=== PATIENT | female | born 1950 | race Caucasian/White ===

== ENCOUNTER → 2017-03-31 | Outpatient (CLI) | payer MEDICARE, BC ==
[~2017-03-31] MED LIST: ALLEGRA; AUGMENTIN PO; CALCIUM 600 +1 EAC3 PO; DIOVAN HCT 80/11 TAB; LIPITOR PO; NASONEX17 GM; OYSTER CALCIUM500 MG; PREDNISONE PO; VITAMIN B-650 MG PO; ZOCOR
--- NOTE | ~2017-03-31 | US136 ---
[facility] A Service of [facility] RADIOLOGY TEXT RESULTS PATIENT: CASSIDY JUNIOR LOCATION: CNIV : 48 UNIT #: [id number] AGE: [address]: Sherita Fonseca MD SEX: F ORDER DR: [id number] [facility] [address] [place], [place] [address] [id number] O MR#: [id number] Acc #: [id number] NAME: CASSIDY JUNIOR : 1950 SEX: F STUDY DATE/TIME: 03/31/2017 14:02 UNIT: CNIV ROOM: STUDY DESCRIPTION: US U/L Ext Art Study Ltd Bil Attending Physician: Sherita Fonseca M.D. Referring Physician: Sherita Fonseca M.D. Ordering Physician: Sherita Fonseca M.D. Primary Care Physician: Sherita Fonseca M.D. MEDICAL IMAGING REPORT This report is preliminary unless electronic signature is present EXAM Bilateral lower extremity IAN, 03/31/2017 HISTORY Claudication FINDINGS The right brachial pressure is 150, left is 137. Right dorsalis pedis pressure is 161 and posterior tibial 157 for an IAN of 1.07 and first toe pressure of 120 mmHg. Left dorsalis pedis pressure is 142, posterior tibial is 159 for an IAN of 1.06 and a first toe pressure of 122 mmHg. PVR waveform at the ankle and first toe level are normal and symmetric bilateral. There are triphasic waveforms in the right and left dorsalis pedis and posterior tibial arteries. IMPRESSION No arterial insufficiency in either the right or the left lower extremity with adequate perfusion of the first toes. Dictated by... Donnie Francis M.D. THIS IS AN ELECTRONICALLY VERIFIED REPORT Donnie Francis M.D. at 04/07/2017 11:00 AM Yady TD: 04/01/2017 12:32 JOB #: [id number] MEDICAL IMAGING REPORT Page 1 of 1 COPY
== END | disposition home or self-care (01) ==
LOC: CNIV 13:48
DX: R09.89 Other specified symptoms and signs involving the circulatory and respiratory systems (principal); I73.9 Peripheral vascular disease, unspecified
CPT/HCPCS: 93922